=== PATIENT | male | born 1990 | race Caucasian/White ===

== ENCOUNTER 2016-08-11 09:50 | Emergency (ER) | payer SELFPAY ==
[~2016-08-11] VITALS: Ht 180.3 cm; Wt 73.9 kg
[~2016-08-11 09:50] MED LIST: ACHD5005 PO; AMOX500C2 PO; BENZ-13 PO; HYDR-3062 PO; NAPR500T PO; PRD20T PO; SILV25CR TP; TRAM-42 PO; TRM50T PO
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
[2016-08-11 11:04] VITALS: BP 122/74
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
== END 2016-08-11 11:04 | disposition home or self-care (01) ==
LOC: EDUNIT# 09:50 → ER 09:53
DX: S40.011A Contusion of right shoulder, initial encounter (principal); F17.210 Nicotine dependence, cigarettes, uncomplicated; Y08.89XA Assault by other specified means, initial encounter
CPT/HCPCS: 72100; 73030; 73562; 99283

== ENCOUNTER 2016-11-11 06:03 | Emergency (ER) | payer SELFPAY ==
[~2016-11-11] VITALS: Ht 180.3 cm; Wt 77.1 kg
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
--- OUTSIDE RECORDS SUMMARY | 2016-11-11 06:11 | XMS REPORT ---
Author Author OTTONIEL MAGANA Organization [facility] Address [address] [place] [address] Care Team Providers Care Steel Layer Name Role Phone OTTONIEL MAGANA Unavailable PROBLEMS Type Condition ICD9-CM Code [id number] Code Onset Dates Condition Status SNOMED Code Problem Reactive depression F32.9 Active 90229976 Problem Stressful life event affecting family Z63.79 Active 499184656 Problem Benzodiazepine abuse, episodic F13.10 Active 803691182 Problem Alcohol abuse F10.10 Active 83427159 Problem Major depress dis, severe F32.2 Active 508073587 Problem Marijuana smoker, episodic F12.20 Active 48568178 ALLERGIES No Known Allergies SOCIAL HISTORY No smoking Hx information available PLAN OF CARE Activity Details Follow Up prn Reason:depression, drug and alcohol use VITAL SIGNS MEDICATIONS No Known Medications RESULTS No Results PROCEDURES Procedure Date Ordered Related Diagnosis Body Site Psych diagnostic evaluation, established patient Mar 03, 2016 IMMUNIZATIONS No Known Immunizations
--- OUTSIDE RECORDS SUMMARY | 2016-11-11 06:11 | XMS REPORT ---
Author Author CARLITA Gonsalves Organization [facility] Address [address] [place] [address] Care Team Providers Care Head Teacher Name Role Phone CARLITA Gonsalves Unavailable PROBLEMS Type Condition ICD9-CM Code VKG54-AM Code Onset Dates Condition Status SNOMED Code Problem Reactive depression F32.9 Active 74882678 Problem Stressful life event affecting family Z63.79 Active 610360836 Problem Benzodiazepine abuse, episodic F13.10 Active 318295259 Problem Alcohol abuse F10.10 Active 16390764 Problem Major depress dis, severe F32.2 Active 660165555 Problem Marijuana smoker, episodic F12.20 Active 10523374 ALLERGIES Substance Reaction Event Type Date Status Darvocet A500 Unknown Drug Allergy Feb, Active SOCIAL HISTORY No smoking Hx information available PLAN OF CARE Activity Details Follow Up prn Reason: VITAL SIGNS Height 71.0 in 2016-03-03 Weight 170.6 lbs 2016-03-03 Heart Rate 80 bpm 2016-03-03 Respiratory Rate 20 2016-03-03 BMI 23.79 kg/m2 2016-03-03 Blood pressure systolic 111 mmHg 2016-03-03 Blood pressure diastolic 70 mmHg 2016-03-03 MEDICATIONS No Known Medications RESULTS No Results PROCEDURES Procedure Date Ordered Related Diagnosis Body Site MH Office Visit, Est Pt., Level 5 Mar 03, 2016 IMMUNIZATIONS No Known Immunizations
[2016-11-11] MEDS ORDERED: IBUPROFEN TABLET 200 MG TAB PO ONE (06:30)
[2016-11-11] MEDS ORDERED: SULF1TAB35 PO (06:37)
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
[2016-11-11 06:45] VITALS: BP 124/67
[2016-11-11] MEDS ORDERED: TRIM/SULFAMETH 160/800 (SEPTRA DS) TAB PO ONE (06:45)
--- NOTE | 2016-11-11 08:22 | Diagnostic Imaging Report ---
INDICATION: Pain. 3 views were obtained FINDINGS: The alignment is normal. The plafonds and talar dome are intact. Ankle mortise is symmetric. There is no fracture or dislocation. Soft tissues are unremarkable. IMPRESSION: No acute fracture or dislocation. Dictated by: Dictated on workstation # [id number]
== END 2016-11-11 06:43 | disposition home or self-care (01) ==
LOC: EDUNIT# 06:03 → ER 06:08
DX: S93.402A Sprain of unspecified ligament of left ankle, initial encounter (principal); L03.116 Cellulitis of left lower limb; F12.90 Cannabis use, unspecified, uncomplicated; F17.210 Nicotine dependence, cigarettes, uncomplicated; F17.290 Nicotine dependence, other tobacco product, uncomplicated; W22.09XA Striking against other stationary object, initial encounter
CPT/HCPCS: 73610; 99283

== ENCOUNTER 2017-06-27 07:10 | Emergency (ER) | payer SELFPAY ==
[~2017-06-27] VITALS: Ht 180.3 cm; Wt 77.1 kg
[~2017-06-27 07:10] MED LIST changes: +AMMONIA INHALATION 0.33 ML AMP ONE; +NAPR-1071 PO; -NAPR500T PO; +SULF1TAB35 PO
[2017-06-27] MEDS ORDERED: NALOXONE 0.4 MG/ML 1 ML (NARCAN) VIAL ONE (07:12)
[2017-06-27] MEDS ORDERED: LACTATED RINGERS 1,000 ML IV ONE (07:30)
--- NOTE | 2017-06-27 07:39 | ED Neurological Problem ---
General Stated Complaint: UNRESPONSIVVE Source: patient, EMS Exam Limitations: clinical condition, intoxication History of Present Illness Date Seen by Provider: June 27, 2017 Time Seen by Provider: 07:07 Initial Comments Patient presents to the ER by EMS with a chief complaint he was found down in the garden beside the [facility] by a neighbor. He was nonresponsive except to painful stimuli so police and EMS were summoned. EMS as they established a left antecubital IV and his blood sugar was 98. He aroused painful stimuli and after a Brown catheter was placed he sat up told us his name is name of his father and that he came from [place] and denies using any substances last night he says he occasionally will take Xanax and occasionally have a drink but he doesn't think he was doing either one of those last night but he doesn't really remember last night. He doesn't think he was attacked. He doesn't have any ID on him but seems to belong to him. 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 He says he was dropped off by his dad from [facility] and [place] but he doesn't remember what happened after that. Allergies and Home Medications Allergies Coded Allergies: Cefadroxil (Verified Allergy, Mild, VOMITING WITH UPSET STOMACH, 07/23/05) Uncoded Allergies: DURICEF (Adverse Reaction, Mild, VOMITING WITH UPSET STOMACH, 07/20/05) Home Medications Sulfamethoxazole/Trimethoprim 1 Each Tablet, 1 EACH PO BID Prescribed by: LETI CHONG on 11/11/16 0637 Patient Home Medication List Home Medication List Reviewed: Yes Review of Systems Constitutional: see HPI (limited ROS 2/2 not answering questions.) Past Sodknqc-Udocfv-Sffqtf Hx Patient Social History Alcohol Use: Occasionally Uses Recreational Drug Use: Yes Drug of Choice: CANNIBUS, xanax Smoking Status: Current Everyday Smoker Type Used: Cigars, Cigarettes 2nd Hand Smoke Exposure: Yes Recent Hopitalizations: No Immunizations Up To Date Tetanus Booster (TDap): Unknown Seasonal Allergies Seasonal Allergies: No Past Medical History Surgeries: No Respiratory: No Cardiac: No Neurological: No Reproductive Disorders: No Sexually Transmitted Disease: No Genitourinary: No Gastrointestinal: No Musculoskeletal: No Endocrine: No HEENT: No Cancer: No Psychosocial: No Integumentary: No Blood Disorders: No Physical Exam Vital Signs Vital Signs - First Documented 06/27/17 07:10 Temp 95.4 Pulse 88 Resp 18 B/P (MAP) 121/79 (93) Pulse Ox 99 O2 Delivery Room Air Capillary Refill : General Appearance: WD/WN, no apparent distress HEENT: PERRL/EOMI, normal ENT inspection; No TMs normal (refused examination); pharynx normal; No pharyngeal erythema; other Neck: non-tender, full range of motion, supple, normal inspection Respiratory: chest non-tender, lungs clear, normal breath sounds, no respiratory distress, no accessory muscle use Cardiovascular: normal peripheral pulses, regular rate, rhythm, no edema, no murmur Peripheral Pulses: 2+ Dorsalis Pedis (R), 2+ Left Dors-Pedis (L), 2+ Radial Pulses (R), 2+ Radial Pulses (L) Gastrointestinal: normal bowel sounds, non tender, soft, no organomegaly Back: normal inspection, no vertebral tenderness Extremities: normal range of motion, non-tender, normal inspection, no pedal edema, no calf tenderness, normal capillary refill Neurologic/Psychiatric: no motor/sensory deficits, other (oriented to self and place but not time or situation. Obtunded but will answer questions with painful stimuli. GCS 13) Crainal Nerves: normal hearing, normal speech, PERRL (2mm john) Motor/Sensory: no motor deficit, no sensory deficit Skin: normal color, warm/dry Progress/Results/Core Measures Results/Orders Lab Results Laboratory Tests Test 06/27/17 07:24 06/27/17 07:35 Range/Units Urine Color NÉSTOR H Urine Clarity CLEAR Urine pH 5 5-9 Urine Specific [place] 1.025 H 1.016-1.022 Urine Protein 2+ H NEGATIVE Urine Glucose (UA) NEGATIVE NEGATIVE Urine Ketones 2+ H NEGATIVE Urine Nitrite NEGATIVE NEGATIVE Urine Bilirubin NEGATIVE NEGATIVE Urine Urobilinogen 4 H NORMAL MG/DL Urine Leukocyte Esterase 1+ H NEGATIVE Urine RBC (Auto) NEGATIVE NEGATIVE Urine RBC RARE /HPF Urine WBC 2-5 /HPF Urine Crystals PRESENT H /LPF Urine Amorphous Sediment RARE BRUCE URATES H /LPF Urine Bacteria TRACE /HPF Urine Casts NONE /LPF Urine Mucus MODERATE H /LPF Urine Culture Indicated NO Urine Opiates Screen NEGATIVE NEGATIVE Urine Oxycodone Screen NEGATIVE NEGATIVE Urine Methadone Screen NEGATIVE NEGATIVE Urine Propoxyphene Screen NEGATIVE NEGATIVE Urine Barbiturates Screen NEGATIVE NEGATIVE Ur Tricyclic Antidepressants Screen NEGATIVE NEGATIVE Urine Phencyclidine Screen NEGATIVE NEGATIVE Urine Amphetamines Screen POSITIVE H NEGATIVE Urine Methamphetamines Screen POSITIVE H NEGATIVE Urine Benzodiazepines Screen POSITIVE H NEGATIVE Urine Cocaine Screen POSITIVE H NEGATIVE Urine Cannabinoids Screen POSITIVE H NEGATIVE White Blood Count 8.2 4.3-11.0 10^3/uL Red Blood Count 4.73 4.35-5.85 10^6/uL Hemoglobin 14.8 13.3-17.7 G/DL Hematocrit 42 40-54 % Mean Corpuscular Volume 89 80-99 FL Mean Corpuscular Hemoglobin 31 25-34 PG Mean Corpuscular Hemoglobin Concent 35 32-36 G/DL Red Cell Distribution Width 12.6 10.0-14.5 % Platelet Count 170 130-400 10^3/uL Mean Platelet Volume 10.1 7.4-10.4 FL Neutrophils (%) (Auto) 64 42-75 % Lymphocytes (%) (Auto) 17 12-44 % Monocytes (%) (Auto) 18 H 0-12 % Eosinophils (%) (Auto) 1 0-10 % Basophils (%) (Auto) 0 0-10 % Neutrophils # (Auto) 5.3 1.8-7.8 X 10^3 Lymphocytes # (Auto) 1.4 1.0-4.0 X 10^3 Monocytes # (Auto) 1.5 H 0.0-1.0 X 10^3 Eosinophils # (Auto) 0.1 0.0-0.3 10^3/uL Basophils # (Auto) 0.0 0.0-0.1 10^3/uL Sodium Level 135 135-145 MMOL/L Potassium Level 5.6 H 3.6-5.0 MMOL/L Chloride Level 105 98-107 MMOL/L Carbon Dioxide Level 18 L 21-32 MMOL/L Anion Gap 12 5-14 MMOL/L Blood Urea Nitrogen 16 7-18 MG/DL Creatinine 1.06 0.60-1.30 MG/DL Estimat Glomerular Filtration Rate > 60 BUN/Creatinine Ratio 15 Glucose Level 98 70-105 MG/DL Calcium Level 9.1 8.5-10.1 MG/DL Total Bilirubin 1.8 H 0.1-1.0 MG/DL Aspartate Amino Transf (AST/SGOT) 38 H 5-34 U/L Alanine Aminotransferase (ALT/SGPT) 19 0-55 U/L Alkaline Phosphatase 56 40-136 U/L Total Protein 7.8 6.4-8.2 GM/DL Albumin 4.4 3.2-4.5 GM/DL Salicylates Level < 5.0 L 5.0-20.0 MG/DL Acetaminophen Level < 10 L 10-30 UG/ML Serum Alcohol < 10 <10 MG/DL My Orders Orders - KALYAN LYON Acetaminophen (06/27/17 07:30) Alcohol (06/27/17 07:30) Cbc With Automated Diff (06/27/17 07:30) Comprehensive Metabolic Panel (06/27/17 07:30) Drug Screen Stat (Urine) (06/27/17 07:30) Salicylate (06/27/17 07:30) Ua Culture If Indicated (06/27/17 07:30) Ct Head Wo (06/27/17 07:30) Saline Lock/Iv-Start (06/27/17 07:30) Lactated Ringers (Lr 1000 Ml Iv Solution (06/27/17 07:30) Naloxone Injection (Narcan Injection) (06/27/17 08:15) Medications Given in ED Current Medications Medications Dose Ordered Sig/Jerel Route Start Time Stop Time Status Last Admin Dose Admin Lactated Ringer's 1,000 ml @ 0 mls/hr Q0M ONCE IV 06/27/17 07:30 06/27/17 07:33 DC 06/27/17 08:19 1,000 MLS/HR Naloxone HCl 0.4 mg ONCE ONCE IV 06/27/17 08:15 06/27/17 08:16 DC 06/27/17 07:17 0.4 MG Vital Signs/I&O 06/27/17 07:10 Temp 95.4 Pulse 88 Resp 18 B/P (MAP) 121/79 (93) Pulse Ox 99 O2 Delivery Room Air Progress Progress Note #1: Time: 07:41 Progress Note The patient is not cool to touch indicating is probably not been down for a long time. He does indicate he has a history of using Xanax which could explain his current state. He does not have any track cai visible. He did not respond to 0.4mg Narcan. No physical wounds to indicate trauma. We will do a CT scan of his head to rule out subdural or other concerning features. We'll obtain some blood, urine drug screen, salicylates and Tylenol. He told me he has no other significant medical history making liver disease at age 25 fairly unlikely. With sufficient stimulation he'll talk and make sense so I don't believe he needs intubated at this time but we'll continue to monitor him. We have discontinued the Brown catheter after obtaining our urine sample to prevent him from pulling it out later. He says his name is Kellee Alanis and his dad's name is Kellee Alanis and can be reached at [phone] in [place]. Left but the indicated the name of Theron. The phosphoric acid supervisor of the above phone number called back and he says he is not known to anyone by the name of Annabelle. Mother Ahsley [phone] disconnected Grandmother Shaye was reached at [phone]. She indicates that they roll over in [place] but the patient, Kellee had decided not to go home to [place] when everybody else needed and stayed behind. That is the last that she knows. Progress Note #2: Time: 10:12 Progress Note On reexamination his physical exam and disposition has not really changed. He will still awaken to noxious stimuli. We have discussed with his girlfriend and father. The father be the next 10 and he is agreed to take the patient home and care for the patient. We have instructed him to prop him into a bed playing with a bottle of Gatorade nearby and just keep an eye on him. If anything worsens he has been given strict return precautions. The girlfriend relates that she was not with the patient yesterday but he has not slept for the last 8 days. His respiratory rate has been drinking 1216 the entire time is been here and his oxygen saturations have never fall below the mid 90s. He is in no acute distress from a respiratory standpoint as long as he does not take any more benzos. Diagnostic Imaging Diagonstic Imaging: CT (c/o) Plain Films/CT/US/NM/MRI: head Comments NAME: KELLEE AGUIRRE [facility] REC#: [id number] PT STATUS: REG ER : 1990 PHYSICIAN: KALYAN LYON MD ADMIT DATE: 06/27/17/ER Draft Date of Exam:06/27/17 CT HEAD WO PROCEDURE: CT head without contrast. TECHNIQUE: Multiple contiguous axial images were obtained through the brain without the use of intravenous contrast. INDICATION: Found unresponsive. No prior studies are available for comparison. The ventricles and sulci are within normal limits. No sulcal effacement, midline shift or hemorrhage is detected. Cisterns are patent. The visualized paranasal sinuses are clear. IMPRESSION: No acute intracranial process is detected. Dictated on workstation # [id number] Dict: 06/27/17 0758 Trans: 06/27/17 0801 KINZA [id number] Interpreted by: DYAN WINTER MD Electronically signed by: Reviewed: Reviewed by Me Departure Impression Primary Impression: Delirium, induced by drug Additional Impressions: Methamphetamine abuse Cocaine abuse Benzodiazepine intoxication Cannabis abuse with intoxication delirium Disposition: 01 HOME, SELF-CARE Condition: Stable Departure-Patient Inst. Decision time for Depature: 10:21 Referrals: JOCY BEASLEY DO (PCP/Family) Primary Care Physician Patient Instructions: Drug Abuse and Drug Addiction (DC) Add. Discharge Instructions: Monitor him over the next couple days while he sleeps this off. If you have any concerns then you can return to the ER. Keep him in bed until he is ready to get up and encouraged him to drink something when he does wake up such as sports drinks. Copy Copies To 1: JOCY BEASLEY TITUS J June 27, 2017 07:39
[2017-06-27 07:52] LABS: BASOPHILS % (AUTO) 0 % (0-10); EOSINOPHILS # (AUTO) 0.1 10^3/uL (0.0-0.3); EOSINOPHILS % (AUTO) 1 % (0-10); HEMATOCRIT 42 % (40-54); HEMOGLOBIN 14.8 G/DL (13.3-17.7); LYMPHOCYTES # (AUTO) 1.4 X 10^3 (1.0-4.0); LYMPHOCYTES % (AUTO) 17 % (12-44); MEAN CORPUSCULAR HEMOGLOBIN 31 PG (25-34); MEAN CORPUSCULAR HGB CONC 35 G/DL (32-36); MEAN CORPUSCULAR VOLUME 89 FL (80-99); MEAN PLATELET VOLUME 10.1 FL (7.4-10.4); MONOCYTES # (AUTO) 1.5 X 10^3 (0.0-1.0); MONOCYTES % (AUTO) 18 % (0-12); NEUTROPHILS # (AUTO) 5.3 X 10^3 (1.8-7.8); NEUTROPHILS % (AUTO) 64 % (42-75); PLATELET COUNT 170 10^3/uL (130-400); RED BLOOD COUNT 4.73 10^6/uL (4.35-5.85); RED CELL DISTRIBUTION WIDTH 12.6 % (10.0-14.5); WHITE BLOOD COUNT 8.2 10^3/uL (4.3-11.0)
[2017-06-27 08:00] LABS: BILIRUBIN,URINE NEGATIVE (NEGATIVE); CLARITY,URINE CLEAR; COLOR,URINE AMBER; GLUCOSE, URINE (UA) NEGATIVE (NEGATIVE); KETONES,URINE 2+ (NEGATIVE); LEUKOCYTE ESTERASE ,URINE 1+ (NEGATIVE); NITRITE,URINE NEGATIVE (NEGATIVE); PH,URINE 5 (5-9); PROTEIN,URINE 2+ (NEGATIVE); UROBILINOGEN,URINE 4 MG/DL (NORMAL)
--- NOTE | 2017-06-27 08:02 | Diagnostic Imaging Report ---
PROCEDURE: CT head without contrast. TECHNIQUE: Multiple contiguous axial images were obtained through the brain without the use of intravenous contrast. INDICATION: Found unresponsive. No prior studies are available for comparison. The ventricles and sulci are within normal limits. No sulcal effacement, midline shift or hemorrhage is detected. Cisterns are patent. The visualized paranasal sinuses are clear. IMPRESSION: No acute intracranial process is detected. Dictated by: Dictated on workstation # [id number]
[2017-06-27 08:04] LABS: ALANINE AMINOTRANSFERASE 19 U/L (0-55); ALBUMIN 4.4 GM/DL (3.2-4.5); ALKALINE PHOSPHATASE 56 U/L (40-136); BILIRUBIN,TOTAL 1.8 MG/DL (0.1-1.0); BUN/CREATININE RATIO 15; CALCIUM 9.1 MG/DL (8.5-10.1); CARBON DIOXIDE 18 MMOL/L (21-32); CHLORIDE 105 MMOL/L (98-107); CREATININE SERUM 1.06 MG/DL (0.60-1.30); GFR ESTIMATED > 60; GLUCOSE 98 MG/DL (70-105); SALICYLATE < 5.0 MG/DL (5.0-20.0); SODIUM 135 MMOL/L (135-145); TOTAL PROTEIN 7.8 GM/DL (6.4-8.2)
[2017-06-27 08:06] LABS: ACETAMINOPHEN < 10 UG/ML (10-30)
[2017-06-27 08:09] LABS: BACTERIA,URINE TRACE /HPF; RBC,URINE RARE /HPF
[2017-06-27 08:10] LABS: AMORPHOUS SEDIMENT,UR RARE AMOR URATES /LPF
[2017-06-27 08:13] LABS: POTASSIUM 5.6 MMOL/L (3.6-5.0)
[2017-06-27 08:13] LABS: AMPHETAMINE SCREEN, URINE POSITIVE (NEGATIVE); BARBITURATE SCREEN URINE NEGATIVE (NEGATIVE); BENZODIAZEPINES SCREEN URINE POSITIVE (NEGATIVE); CANNABINOID SCREEN, URINE POSITIVE (NEGATIVE); COCAINE SCREEN URINE POSITIVE (NEGATIVE); METHADONE STAT NEGATIVE (NEGATIVE); METHAMPHETAMINE SCREEN URINE S POSITIVE (NEGATIVE); OPIATE SCREEN URINE NEGATIVE (NEGATIVE); OXYCODONE STAT NEGATIVE (NEGATIVE); PROPOXYPHENE STAT NEGATIVE (NEGATIVE); TRICYCLIC ANTIDEPRESSANTS SCRE NEGATIVE (NEGATIVE)
[2017-06-27] MEDS ORDERED: NALOXONE 0.4 MG/ML 1 ML (NARCAN) VIAL IV ONE (08:15)
[2017-06-27 10:19] VITALS: BP 94/63
== END 2017-06-27 10:32 | disposition home or self-care (01) ==
LOC: EDUNIT# 07:25 → ER 07:26
DX: F13.121 Sedative, hypnotic or anxiolytic abuse with intoxication delirium (principal); F12.121 Cannabis abuse with intoxication delirium; F14.10 Cocaine abuse, uncomplicated; F15.10 Other stimulant abuse, uncomplicated; F17.210 Nicotine dependence, cigarettes, uncomplicated
CPT/HCPCS: 36415; 51701; 70450; 80053; 80306; 80320; 80329; 81000; 85025; 96361; 96374

== ENCOUNTER 2017-11-18 13:51 | Emergency (ER) | payer SELFPAY ==
[~2017-11-18] VITALS: Ht 180.3 cm; Wt 88.0 kg
[~2017-11-18 13:51] MED LIST changes: -AMMONIA INHALATION 0.33 ML AMP ONE; -BENZ-13 PO; +BENZ100C18 PO
[2017-11-18] MEDS ORDERED: AZITHROMYCIN 250 MG TAB (ZITHROMAX) PO STA (14:01)
[2017-11-18 14:05] LABS: BILIRUBIN,URINE 1+ (NEGATIVE); CLARITY,URINE VERY CLOUDY; COLOR,URINE AMBER; GLUCOSE, URINE (UA) NEGATIVE (NEGATIVE); KETONES,URINE 4+ (NEGATIVE); LEUKOCYTE ESTERASE ,URINE 3+ (NEGATIVE); NITRITE,URINE NEGATIVE (NEGATIVE); PH,URINE 6 (5-9); PROTEIN,URINE 2+ (NEGATIVE); UROBILINOGEN,URINE 8 MG/DL (NORMAL)
[2017-11-18] MEDS ORDERED: AZITHROMYCIN 250 MG TAB (ZITHROMAX) PO ONE (14:15)
[2017-11-18] MEDS ORDERED: GENTAMICIN 40 MG/ML 2 ML INJ SDV IM ONE (14:15)
[2017-11-18 14:16] LABS: BACTERIA,URINE FEW /HPF; WBC,URINE TNTC /HPF
--- NOTE | 2017-11-18 14:38 | ED GU-Male ---
General Chief Complaint: -Male Stated Complaint: POSSIBLE STI Nursing Triage Note: pt reports he has penile discharge, burning with urination. suspects sti Source: patient Exam Limitations: no limitations History of Present Illness Date Seen by Provider: Nov 18, 2017 Time Seen by Provider: 13:54 Initial Comments This 27-year-old man presents to the emergency room with penile discharge and irritation and dysuria. He believes he has an STI. He has no definite known exposure. He denies any fever. He denies any exterior symptoms or symptoms in the testicles. Allergies and Home Medications Allergies Coded Allergies: cefadroxil (Verified Allergy, Mild, VOMITING WITH UPSET STOMACH, 07/23/05) Uncoded Allergies: DURICEF (Adverse Reaction, Mild, VOMITING WITH UPSET STOMACH, 07/20/05) Home Medications Sulfamethoxazole/Trimethoprim 1 Each Tablet, 1 EACH PO BID Prescribed by: LETI CHONG on 11/11/16 0637 Patient Home Medication List Home Medication List Reviewed: Yes Review of Systems Review of Systems Constitutional: no symptoms reported EENTM: no symptoms reported Respiratory: no symptoms reported Cardiovascular: no symptoms reported Gastrointestinal: no symptoms reported Genitourinary: see HPI Musculoskeletal: no symptoms reported Skin: no symptoms reported Psychiatric/Neurological: No Symptoms Reported Endocrine: No Symptoms Reported Hematologic/Lymphatic: No Symptoms Reported Past Dozrkwu-Gsnmpb-Sszjmp Hx Past Med/Social Hx: Reviewed Nursing Past Med/Soc Hx Patient Social History Alcohol Use: Denies Use Recreational Drug Use: No Drug of Choice: hx CANNIBUS, xanax Smoking Status: Current Everyday Smoker Type Used: Cigars, Cigarettes 2nd Hand Smoke Exposure: Yes Recent Foreign Travel: No Contact w/Someone Who Travel: No Recent Infectious Disease Expo: No Recent Hopitalizations: No Immunizations Up To Date Tetanus Booster (TDap): Unknown Seasonal Allergies Seasonal Allergies: No Past Medical History Surgeries: No Respiratory: No Cardiac: No Neurological: No Reproductive Disorders: No Sexually Transmitted Disease: No Genitourinary: No Gastrointestinal: No Musculoskeletal: No Endocrine: No HEENT: No Cancer: No Psychosocial: No Integumentary: No Blood Disorders: No Physical Exam Vital Signs Vital Signs - First Documented 11/18/17 13:55 Temp 96.3 Pulse 84 Resp 16 B/P (MAP) 131/93 (106) Pulse Ox 98 O2 Delivery Room Air Capillary Refill : Less Than 3 Seconds Height, Weight, BMI Height: 5'11.00" Weight: 194lbs. oz. 87.228909zl; 23.71 BMI Method:Stated General Appearance: WD/WN, no apparent distress HEENT: normal ENT inspection Cardiovascular: regular rate, rhythm, no edema, no murmur Respiratory: lungs clear, normal breath sounds, no respiratory distress, no accessory muscle use Gastrointestinal: non tender, soft Skin: normal color, warm/dry Progress/Results/Core Measures Suspected Sepsis Recent Fever Within 48 Hours: No Infection Criteria Present: Suspected New Infection New/Unexplained Altered Menta: No Sepsis Screen: No Definite Risk SIRS Temperature:96.3 Pulse: 84 Respiratory Rate: 16 Blood Pressure 131 /93 Mean: 106 Results/Orders Lab Results Laboratory Tests Test 11/18/17 14:00 Range/Units Urine Color NÉSTOR H Urine Clarity VERY CLOUDY H Urine pH 6 5-9 Urine Specific [place] 1.020 1.016-1.022 Urine Protein 2+ H NEGATIVE Urine Glucose (UA) NEGATIVE NEGATIVE Urine Ketones 4+ H NEGATIVE Urine Nitrite NEGATIVE NEGATIVE Urine Bilirubin 1+ H NEGATIVE Urine Urobilinogen 8 H NORMAL MG/DL Urine Leukocyte Esterase 3+ H NEGATIVE Urine RBC (Auto) 4+ H NEGATIVE Urine RBC NONE /HPF Urine WBC TNTC H /HPF Urine Squamous Epithelial Cells NONE /HPF Urine Crystals NONE /LPF Urine Bacteria FEW H /HPF Urine Casts NONE /LPF Urine Mucus NEGATIVE /LPF Urine Culture Indicated YES My Orders Orders - LETI GASPAR MD Chlamydia Trachomatis Urine (11/18/17 13:53) Neis Mustapha Dna Urine Test (11/18/17 13:53) Ua Culture If Indicated (11/18/17 13:53) Azithromycin Tablet (Zithromax Tablet) (11/18/17 14:01) Gentamicin (Adult) Injection (Garamycin (11/18/17 14:15) Azithromycin Tablet (Zithromax Tablet) (11/18/17 14:15) Urine Culture (11/18/17 14:00) Medications Given in ED Current Medications Medications Dose Ordered Sig/Jerel Route Start Time Stop Time Status Last Admin Dose Admin Azithromycin 1,000 mg ONCE ONCE PO 11/18/17 14:15 11/18/17 14:16 DC 11/18/17 14:29 1,000 MG Gentamicin Sulfate 240 mg UD ONCE IM 11/18/17 14:15 11/18/17 14:16 DC 11/18/17 14:32 240 MG Vital Signs/I&O 11/18/17 11/18/17 13:55 15:07 Temp 96.3 Pulse 84 89 Resp 16 16 B/P (MAP) 131/93 (106) 128/82 (97) Pulse Ox 98 98 O2 Delivery Room Air Room Air Capillary Refill : Less Than 3 Seconds Blood Pressure Mean: 106 Progress Note : Progress Note Gen. exam was deferred as patient stated he had no external signs or symptoms. Patient was treated with azithromycin 2 g orally and gentamicin 240 mg IM as he has a cephalosporin allergy and cannot take the Rocephin. Patient requested blood testing for possible sexually transmitted diseases as well. He states he wants tested for "everything". He was deferred to his primary care provider for the blood testing. Departure Impression Primary Impression: Penile discharge Disposition: HOME, SELF-CARE Condition: Improved Departure-Patient Inst. Decision time for Depature: 14:10 Referrals: [facility] (PCP/Family) Primary Care Physician Patient Instructions: Sexually-Transmitted Diseases (DC) Add. Discharge Instructions: Notify all partners of the possibility of sexually transmitted infection and encouraged them to present for STD screening. You should be retested in about 1-2 weeks to ensure cure. If you are clear of infection at that time, you may resume sexual activity, but please ensure any partners have also been treated to prevent reinfection. Return to care if you have worsening symptoms or any other concerns. All discharge instructions reviewed with patient and/or family. Voiced understanding. LETI GASPAR MD Nov 18, 2017 14:38
[2017-11-18 15:07] VITALS: BP 128/82
== END 2017-11-18 15:07 | disposition home or self-care (01) ==
LOC: EDUNIT# 13:51 → ER 13:52
DX: R36.9 Urethral discharge, unspecified (principal); F17.210 Nicotine dependence, cigarettes, uncomplicated; F17.290 Nicotine dependence, other tobacco product, uncomplicated; Z88.8 Allergy status to other drugs, medicaments and biological substances
CPT/HCPCS: 36415; 81000; 87077; 87088; 87185; 87491; 87591; 96372; 99284

== ENCOUNTER 2022-05-26 07:54 | Emergency (ER) | payer SELFPAY ==
[~2022-05-26] VITALS: Ht 180 cm; Wt 88.0 kg
[~2022-05-26 07:54] MED LIST changes: -SULF1TAB35 PO; +SULF1TAB38 PO
--- NOTE | 2022-05-26 08:08 | ED EENT ---
History of Present Illness General Chief Complaint: Foreign Body Stated Complaint: FOREIGN OBJECT IN RT EYE Nursing Triage Note: PT AMB TO TRIAGE, PT STATES MAY HAVE A PIECE OF SAND IN R EYE, STATES WAS WORKING IN YARD LAST PM. PT STATES ATTEMPT TO WASH OUT DURING NITE CONT TO BE IRRITATED Source: patient Exam Limitations: no limitations History of Present Illness Date Seen by Provider: May 26, 2022 Time Seen by Provider: 08:06 Initial Comments Patient is a very pleasant 31-year-old male who presents to the emergency room with a chief complaint of right eye discomfort. Patient states he was outside working in his yard yesterday evening when he felt like he got something in his eye. He states initially he feels like it is under the lid. He irrigated without relief. Continues to be red and draining, clear tears. No complaints of decreased visual acuity just chronic irritation in the right eye. Otherwise healthy. Last tetanus shot greater than 5 years ago. Timing/Duration: abrupt Severity: moderate Prearrival Treatment: no prearrival treatment Associated Symptoms: denies symptoms Allergies and Home Medications Allergies Coded Allergies: cefadroxil (Verified Allergy, Mild, VOMITING WITH UPSET STOMACH, 07/23/05) Uncoded Allergies: DURICEF (Adverse Reaction, Mild, VOMITING WITH UPSET STOMACH, 07/20/05) Patient Home Medication List Home Medication List Reviewed: Yes Moxifloxacin HCl (Vigamox) 0.5 % Soln, 1 DROP OP TID Prescribed by: ABBY CLEARY on 05/26/22 0839 Sulfamethoxazole/Trimethoprim (Bactrim Ds Tablet) 1 Each Tablet, 1 EACH PO BID Prescribed by: LETI CHONG on 11/11/16 0637 Review of Systems Review of Systems Constitutional: see HPI Eyes: Drainage, Foreign Body Sensation, Inflammation Nose: other (Rhinorrhea) Respiratory: no symptoms reported Gastrointestinal: no symptoms reported Past Jvpddod-Kvcqxa-Dyeuyc Hx Patient Social History Tobacco Use?: Yes Tobacco type used: Cigarettes Smoking Status: Current Everyday Smoker Substance use?: No Alcohol Use?: Yes Alcohol Frequency: Once in a while Pt feels they are or have been: No Immunizations Up To Date Tetanus Booster (TDap): Unknown Influenza Vaccine Up-to-Date: No; Not Current Seasonal Allergies Seasonal Allergies: No Past Medical History Surgery/Hospitalization HX: DENIES Surgeries: No Respiratory: No Cardiac: No Neurological: No Reproductive Disorders: No Sexually Transmitted Disease: No Genitourinary: No Gastrointestinal: No Musculoskeletal: No Endocrine: No HEENT: No Cancer: No Psychosocial: No Integumentary: No Blood Disorders: No Physical Exam Vital Signs Vital Signs - First Documented 05/26/22 08:00 Temp 36.8 Pulse 62 Resp 18 B/P (MAP) 129/82 (98) Pulse Ox 97 Height, Weight, BMI Height: 5'11.00" Weight: 194lbs. oz. 87.250792gr; 27.00 BMI Method:Stated General Appearance: WD/WN, no apparent distress Eyes: right eye conjunctival inflammation, right eye other (FB buried in the cornea right eye at 3 o'clock position. no abrasion) Cardiovascular: regular rate, rhythm Respiratory: no respiratory distress, no accessory muscle use Neurologic/Psychiatric: alert, normal mood/affect, oriented x 3 Skin: normal color, warm/dry Procedures/Interventions Eye : Location: right eye Eye Irrigated w/ Saline (ccs): 5 Anesthesia (gtts): Tetracaine Progress/Procedure Conclusion slit lamp reveals FB right cornea, 3 o'clock position; associated tiny rust ring Progress/Results/Core Measures Results/Orders My Orders Orders - ABBY CLEARY MD Tetracaine 0.5% Ophth Digna Sdv (Tetracai (05/26/22 08:15) Fluorescein Strips (Fwsgk-M-Ovmlls) (05/26/22 08:15) Balanced Salt Irrigation Soln (Bss Irrig (05/26/22 08:15) Tetracaine 0.5% Ophth Digna Sdv (Tetracai (05/26/22 08:11) Dipht,Pertuss(Acell),Tet Adult (Boostrix (05/26/22 08:45) Moxifloxacin 5 Mg/Ml 0.3 Ml Op (Vigamox (05/26/22 08:45) Ibuprofen Tablet (Motrin Tablet) (05/26/22 08:45) Medications Given in ED Current Medications Medications Dose Ordered Sig/Jerel Route Start Time Stop Time Status Last Admin Dose Admin Balanced Salt Solution 15 ml ONCE ONCE IR 05/26/22 08:15 05/26/22 08:16 DC 05/26/22 08:12 15 ML Fluorescein Sodium 1 mg ONCE ONCE OU 05/26/22 08:15 05/26/22 08:16 DC 05/26/22 08:12 1 MG Tetracaine HCl 4 ml ONCE ONCE OU 05/26/22 08:15 05/26/22 08:16 DC 05/26/22 08:12 4 ML Vital Signs/I&O 05/26/22 08:00 Temp 36.8 Pulse 62 Resp 18 B/P (MAP) 129/82 (98) Pulse Ox 97 Blood Pressure Mean: 98 Departure Communication (Admissions) Time/Spoke to Consulting Phy: 08:[address] Abdullahi Impression Primary Impression: Corneal foreign body Qualified Codes: T15.01XA - Foreign body in cornea, right eye, initial encounter Disposition: HOME, SELF-CARE Condition: Stable Departure-Patient Inst. Decision time for Depature: 09:36 Referrals: CALIN GOMEZ OD,LOCAL PHYSICIAN (PCP) Primary Care Physician Patient Instructions: Foreign Body in Eye (DC) Add. Discharge Instructions: Call the [facility] this morning, they will give you a time to be seen today to further evaluate your eye. Use the eyedrops 1 drop 3 times daily for the next week. Firi-wgj-rxrfejz ibuprofen 3 tablets which is 600 mg every 6-8 hours as needed with food for pain If you develop any worsening, concerning symptoms please return to the emergency department for reevaluation. Scripts Moxifloxacin HCl (Vigamox) 0.5 % Soln 1 DROP OP TID for 7 Days, #5 ML Prov: ABBY CLEARY MD 05/26/22 Work/School Note: Work Release Form Date Seen in the Emergency Department: May 26, 2022 Return to Work: May 27, 2022 [facility] 1 - [employer] Copy Copies To 1: CALIN GOMEZ OD, KATHRYN M MD May 26, 2022 08:08
[2022-05-26] MEDS ORDERED: TETRACAINE 0.5% OPHTH SOLN 4 ML BTL (SINGLE DOSE ONLY) ONE (08:11)
[2022-05-26] MEDS ORDERED: BSS 15 ML IR ONE (08:15)
[2022-05-26] MEDS ORDERED: FLUORESCEIN (FLUOR-I-STRIPS) 1 MG STRP OU ONE (08:15)
[2022-05-26] MEDS ORDERED: TETRACAINE 0.5% OPHTH SOLN 4 ML BTL (SINGLE DOSE ONLY) OU ONE (08:15)
[2022-05-26] MEDS ORDERED: MOXI3DRO28 OP (08:39)
[2022-05-26] MEDS ORDERED: MOXIFLOXACIN OPHTH SOLN 5 MG/ML 0.3 ML SYRINGE OP ONE (08:45)
[2022-05-26] MEDS ORDERED: IBUPROFEN 600 MG (MOTRIN) TAB PO ONE (08:45)
[2022-05-26] MEDS ORDERED: TETANUS,DIPTH,PERTUSS P/F (BOOSTRIX) 0.5 ML VIAL IM ONE (08:45)
[2022-05-26 08:59] VITALS: BP 129/82
[2022-05-26] MEDS ORDERED: MOXIFLOXACIN 0.5% SOL (VIGAMOX) 3 ML BTL OP ONE (09:00)
== END 2022-05-26 08:59 | disposition home or self-care (01) ==
LOC: EDUNIT# 07:54 → ER 07:57
DX: T15.01XA Foreign body in cornea, right eye, initial encounter (principal); F17.210 Nicotine dependence, cigarettes, uncomplicated; Z88.1 Allergy status to other antibiotic agents; Z23 Encounter for immunization
CPT/HCPCS: 90715; 99284

== ENCOUNTER 2022-10-20 08:29 | Emergency (ER) | payer SELFPAY ==
[~2022-10-20] VITALS: Ht 180 cm; Wt 81.0 kg
[~2022-10-20 08:29] MED LIST changes: +MOXI3DRO28 OP
--- NOTE | 2022-10-20 08:48 | ED EENT ---
History of Present Illness General Chief Complaint: Eye Problems Stated Complaint: RT EYE INJ | POKED HIMSELF IN EYE Nursing Triage Note: PT AMT TO RM 6 STATES POSSIBLY POKED SELF IN R EYE. EYE IRRITATED, REDDEND AND PAINFUL Source: patient Exam Limitations: no limitations History of Present Illness Date Seen by Provider: Oct 20, 2022 Time Seen by Provider: 08:48 Initial Comments Patient is a 31-year-old male who presents to the emergency room with a chief complaint of right eye pain. He states that he thinks he poked himself in the eye this morning while he was lying in bed. He is not sure if it was his hand or a blanket or what but he has right medial eye pain that is worse with blinking. He endorses a little blurry vision. He states he has had previous right eye trauma approximately a year ago when he had a piece of metal in his eye and was referred [facility] for treatment. He states his t etanus was updated at that time. He states his eye is watery and more red than usual. His only allergy is to Duricef. He does not wear glasses or contacts. Takes no daily medications. Timing/Duration: abrupt Severity: moderate Location: eye (R) Prearrival Treatment: no prearrival treatment Associated Symptoms: denies symptoms Allergies and Home Medications Allergies Coded Allergies: cefadroxil (Verified Allergy, Mild, VOMITING WITH UPSET STOMACH, 07/23/05) Uncoded Allergies: DURICEF (Adverse Reaction, Mild, VOMITING WITH UPSET STOMACH, 07/20/05) Patient Home Medication List Home Medication List Reviewed: Yes Hydrocodone/Acetaminophen (Hydrocodone-Acetamin 5-325 mg) 5 Mg-325 Mg Tablet, 1 TAB PO Q6H PRN for PAIN-MODERATE (5-7) Prescribed by: ABBY CLEARY on 10/20/22 0949 Moxifloxacin HCl (Vigamox) 0.5 % Soln, 1 DROP OP TID Prescribed by: ABBY CLEARY on 05/26/22 0839 Sulfamethoxazole/Trimethoprim (Bactrim Ds Tablet) 1 Each Tablet, 1 EACH PO BID Prescribed by: LETI CHONG on 11/11/16 0637 Review of Systems Review of Systems Constitutional: see HPI Eyes: Blurred Vision, Drainage, Foreign Body Sensation, Pain Past Wvjffes-Fjuqsu-Ekwlzq Hx Patient Social History Tobacco Use?: Yes Tobacco type used: Cigarettes Smoking Status: Current Everyday Smoker Substance use?: Yes Substance type: Marijuana Substance frequency: Once in a while Alcohol Use?: No Pt feels they are or have been: No Immunizations Up To Date Tetanus Booster (TDap): Unknown Seasonal Allergies Seasonal Allergies: No Past Medical History Surgery/Hospitalization HX: DENIES Surgeries: No Respiratory: No Cardiac: No Neurological: No Reproductive Disorders: No Sexually Transmitted Disease: No Genitourinary: No Gastrointestinal: No Musculoskeletal: No Endocrine: No HEENT: No Cancer: No Psychosocial: No Integumentary: No Blood Disorders: No Physical Exam Vital Signs Vital Signs - First Documented 10/20/22 08:35 Temp 36.8 Pulse 62 Resp 21 B/P (MAP) 135/83 (100) Pulse Ox 95 Height, Weight, BMI Height: 5'11.00" Weight: 194lbs. oz. 87.787281yl; 25.00 BMI Method:Stated General Appearance: WD/WN, no apparent distress Eyes: right eye conjunctival inflammation Ears: bilateral ear auricle normal Nose: normal inspection Respiratory: no respiratory distress, no accessory muscle use Neurologic/Psychiatric: alert, normal mood/affect, oriented x 3 Skin: normal color, warm/dry Procedures/Interventions Eye : Location: right eye Anesthesia (gtts): Tetracaine Progress/Procedure Conclusion Patient examined with florescein stain and slit lamp. Identified a small corneal laceration at the 6 o'clock position margin of the pupil and iris. No Sidel's sign. Progress/Results/Core Measures Results/Orders My Orders Orders - ABBY CLEARY MD Tetracaine 0.5% Ophth Digna Sdv (Tetracai (10/20/22 09:00) Fluorescein Ophthalmic Strips (Fluoresce (10/20/22 09:00) Balanced Salt Irrigation Soln (Bss Irrig (10/20/22 09:00) Moxifloxacin 5 Mg/Ml 0.3 Ml Op (Moxiflox (10/20/22 10:00) Moxifloxacin 0.5% Digna. (Vigamox) (10/20/22 10:15) Medications Given in ED Vital Signs/I&O Blood Pressure Mean: 100 Progress Progress Note : Time: 09:30 Progress Note Patient seen and evaluated by me. Evaluation today includes physical exam, visual acuity and evaluation with slit lamp. Pertinent physical exam findings - WDWN male in NAD. Right eye with mild conjunctival irritation and injection. Pupils equal and reactive. EOMI. No obvious injury to the naked eye. Tetracaine used to anesthetize the cornea and Florescein stain used to evaluate for injury. Notable small 1-2mm flap-like injury to the 6 o'clock position at the junction of the iris. Neg Maria Luisa's sign. Rest of exam unremarkable. Ddx based on H&P - abrasion v laceration cornea Patient given a rx of hydrocodone and Vigamoxx. Advised to follow up with Optometry for possible contact lens "bandage". Return precautions give in both verbal and written format. Patient is comfortable with the plan of care, all questions are sought and answered. Departure Impression Primary Impression: Corneal laceration of right eye Qualified Codes: S05.31XA - Ocular laceration without prolapse or loss of intraocular tissue, right eye, initial encounter Disposition: 01 HOME, SELF-CARE Condition: Stable Departure-Patient Inst. Decision time for Depature: 09:38 Referrals: SUDHEER BAXTER OD NO,LOCAL PHYSICIAN (PCP) Primary Care Physician Patient Instructions: Corneal Abrasion ED Add. Discharge Instructions: Use the antibiotic drops to the right eye, 3 times a day for 7 days/ Please call [facility] for a follow up appointment. You may be a candidate for a protective contact lens to help with eye healing. If you develop increased pain, redness, drainage that loos like pus, please return to the ER for re-evaluation. Hydrocodone 5mg tablets with 1 extra strength tablet every 6 hours for pain. You can alternate with Ibuprofen 3 pills (600mg) with food as needed for pain. Scripts Hydrocodone/Acetaminophen (Hydrocodone-Acetamin 5-325 mg) 5 Mg-325 Mg Tablet 1 TAB PO Q6H PRN for PAIN-MODERATE (5-7), #10 TAB Prov: ABBY CLEARY MD 10/20/22 Copy Copies To 1: SUDHEER BAXTER OD, KATHRYN M MD Oct 20, 2022 08:48
[2022-10-20] MEDS ORDERED: TETRACAINE 0.5% OPHTH SOLN 4 ML BTL (SINGLE DOSE ONLY) OU ONE (09:00)
[2022-10-20] MEDS ORDERED: BSS 15 ML IR ONE (09:00)
[2022-10-20] MEDS ORDERED: FLUORESCEIN 1 MG OPHTHALMIC STRIPS OU ONE (09:00)
[2022-10-20] MEDS ORDERED: ACHD5005 PO (09:48)
[2022-10-20] MEDS ORDERED: MOXIFLOXACIN OPHTH SOLN 5 MG/ML 0.5 ML SYRINGE OP ONE (10:00)
[2022-10-20] MEDS ORDERED: MOXIFLOXACIN 0.5% SOL (VIGAMOX) 3 ML BTL OP ONE (10:15)
[2022-10-20 10:22] VITALS: BP 135/83
[2022-10-21] MEDS ORDERED: ACHD5005 PO ×2 (10:39→14:46)
== END 2022-10-20 10:22 | disposition home or self-care (01) ==
LOC: EDUNIT# 08:29 → ER 08:31
DX: S05.31XA Ocular laceration without prolapse or loss of intraocular tissue, right eye, initial encounter (principal); F17.210 Nicotine dependence, cigarettes, uncomplicated; Z88.1 Allergy status to other antibiotic agents; X58.XXXA Exposure to other specified factors, initial encounter
CPT/HCPCS: 99282